=== PATIENT | female | born 1965 | race Caucasian/White ===

== ENCOUNTER 2023-12-03 19:13 | Emergency (ER) | payer MEDICARE, OTHER, SELFPAY ==
[2023-12-03 19:14] VITALS: BP 146/79; PULSE 95; RESP 18; TEMP 36.7; O2SAT 100
--- NOTE | 2023-12-03 19:48 | EDS_ITS ---
HPI <JOEL Martin - Last Filed: 12/03/23 21:15> History of Present Illness Chief Complaint: Wound Narrative Narrative: Patient is a 58-year-old female with history of severe morbid obesity, diabetes, hyperlipidemia who presents to the emergency department with concern about possible new wound. Patient currently sees the [place] wound [facility], she sees them on Thursday. Patient is currently has packing to 1 wound. The daughter noticed a small area today. They also are unable to get there nystatin powder. Patient [place] any fever chills or infectious symptoms. PFS <JOEL Martin - Last Filed: 12/03/23 21:15> [facility] Medical History (Updated 12/03/23 @ 21:14 by JOEL Martin) CPAP (continuous positive airway pressure) dependence Diabetes GERD (gastroesophageal reflux disease) Hypothyroidism Osteoporosis Sleep apnea Home Medications ascorbic acid (vitamin C) 500 mg tablet,extended release (C Complex) 500 mg PO DAILY 12/03/23 [History Last Taken Unknown] atorvastatin 20 mg tablet 20 mg PO DAILY 12/03/23 [History Last Taken Unknown] cholecalciferol (vitamin D3) 50 mcg (2,000 unit) capsule 50 mcg PO DAILY 12/03/23 [History Last Taken Unknown] ferrous sulfate 325 mg (65 mg iron) tablet (iron) 325 mg PO DAILY 12/03/23 [History Last Taken Unknown] levothyroxine 125 mcg capsule 125 mcg PO DAILY 12/03/23 [History Last Taken Unknown] metformin 750 mg tablet,extended release 24 hr 750 mg PO BID 12/03/23 [History Last Taken Unknown] metoprolol tartrate 50 mg tablet (Lopressor) 50 mg PO BID 12/03/23 [History Last Taken Unknown] nystatin 100,000 unit/gram topical powder 1 applic topical BID #15 grams 12/03/23 [Rx Last Taken Unknown] omeprazole 40 mg capsule,delayed release 40 mg PO DAILY 12/03/23 [History Last Taken Unknown] pioglitazone 45 mg tablet 45 mg PO DAILY 12/03/23 [History Last Taken Unknown] Allergy/AdvReac Type Severity Reaction Status Date / Time Iodinated Contrast Media Allergy Intermediate HIVES Verified 12/03/23 19:17 Surgical History (Updated 12/03/23 @ 19:30 by Bijal Lynn) History of 2 sections Social History Smoking Status: Never smoker ROS <JOEL Martin - Last Filed: 12/03/23 21:15> ROS ED ROS Narrative Constitutional: Negative for fever, chills, weight loss, weakness Eyes: Negative for vision loss, vision change, double vision ENT: Negative for any sore throat, ear pain, congestion Cardiovascular: Negative for any chest pain, tightness, palpitations Respiratory: Negative for any cough, sputum production, hemoptysis, dyspnea, dyspnea on exertion, orthopnea Gastrointestinal: Negative for any abdominal pain, nausea, vomiting, diarrhea, constipation, blood in stool, blood in vomit : Negative for any urinary frequency, dysuria, retention, blood in urine Muscle skeletal: Negative for any neck pain, back pain Neurological: Negative for any headache, syncope, dizziness Skin: Negative for any rashes, itching, abrasions, lacerations. Positive for wound to the lower abdomen Psychiatric: Negative for any depression, anxiety, stress, suicidal ideation, homicidal ideation Hematologic: Negative for any excessive bruising, easy bleeding EXAM <JOEL Martin - Last Filed: 12/03/23 21:15> Physical Exam Narrative Exam Narrative: Vital signs reviewed. HEET: Head normocephalic atraumatic, TMs clear bilaterally. Posterior pharynx is clear, moist mucous membranes. Nares clear bilaterally. Neck: Supple with no lymphadenopathy or tenderness. No signs of meningismus. Cardiac: Regular rate and rhythm no murmurs gallops or rubs, equal peripheral pulses bilaterally. Respiratory: Lungs clear to auscultation bilaterally. No chest tenderness. Abdomen: Soft, nontender, nondistended. No abdominal bruit or pulsatile masses. No hepatosplenomegaly Extremities: No peripheral edema, no signs of gross trauma or deformity. Active full range of motion of all extremities. Neuro: Cranial nerves II through XII intact, no focal neurological deficits. Skin: Clean dry and intact with no rash, purpura, petechiae, vesicles or pustules. Patient under the pannus does have 1 wound that is currently getting dressed, the other wound is small roughly 1 cm x 1 cm circular, there is minimal tracking. There is no surrounding cellulitis, no drainage. Patient has no surrounding cellulitis. The area looks generally well, do not see any yeast. Backs/flank: No CVA tenderness, no midline spinal tenderness, no deformity. Psych: Normal mood and affect. No SI, HI or acute psychosis. Const Vital Signs: 12/03/23 19:14 12/03/23 21:10 Temperature 98.0 F 97.9 F Temperature Source Temporal Oral Pulse Rate 95 78 Respiratory Rate 18 16 Blood Pressure 146/79 H 126/56 H Blood Pressure Mean 101 79 Pulse Ox 100 97 Oxygen Delivery Method Room Air Room Air Positive obese Nutritional Appearance: obese <Dr. Theodore Kowalski DO - Last Filed: 12/03/23 21:33> Physical Exam Const Vital Signs: 12/03/23 19:14 12/03/23 21:10 Temperature 98.0 F 97.9 F Temperature Source Temporal Oral Pulse Rate 95 78 Respiratory Rate 18 16 Blood Pressure 146/79 H 126/56 H Blood Pressure Mean 101 79 Pulse Ox 100 97 Oxygen Delivery Method Room Air Room Air MDM <JOEL Martin - Last Filed: 12/03/23 21:15> MDM Radiography Diagnostic Testing: Clinical Impression(s) from Imaging Studies Pelvis CT 12/03/23 20:35 IMPRESSION: No significant soft tissue abnormality. Electronically Signed: Singh Fernandez MD at 20:59 EDT Reading Location ID and State: [facility] / [place] Tel , Service support , Treatment and Re-Evaluation :: Differential diagnosis includes however is not limited to: Acute on chronic wound, MRSA, MSSA, cellulitis. Patient is in no obvious distress, patient's vital signs are stable, presenting to the emergency department with complaints of wound to the pannus area. At this time, we did order a CT scan to ensure there is no tracking. CT scan of the abdomen pelvis without contrast shows no significant soft tissue abnormality. At this time, patient be discharged home. She will continue to follow-up with mass and wound care. She be given nonadherent dressing pads. I will start the patient on her nystatin powder which she is supposed to be using and could not get filled. Patient instructed return for any worsening symptoms, stable for discharge <Dr. Theodore Kowalski DO - Last Filed: 12/03/23 21:33> MDM Radiography Diagnostic Testing: Clinical Impression(s) from Imaging Studies Pelvis CT 12/03/23 20:35 IMPRESSION: No significant soft tissue abnormality. Electronically Signed: Singh Fernandez MD at 20:59 EDT , Treatment and Re-Evaluation :: Differential diagnosis includes however is not limited to: Acute on chronic wound, MRSA, MSSA, cellulitis. Patient is in no obvious distress, patient's vital signs are stable, presenting to the emergency department with complaints of wound to the pannus area. At this time, we did order a CT scan to ensure there is no tracking. CT scan of the abdomen pelvis without contrast shows no significant soft tissue abnormality. At this time, patient be discharged home. She will continue to follow-up with [facility] and wound care. She be given nonadherent dressing pads. I will start the patient on her nystatin powder which she is supposed to be using and could not get filled. Patient instructed return for any worsening symptoms, stable for discharge I have personally performed a face to face assessment of the patient and have reviewed the STACY Note. I performed a substantive portion of the visit including all aspects of the following. My krishna findings include: History is 58-year-old female history of diabetes morbid obesity is a chronic wound to her lower abdomen underneath the pannus had a prior site.. Patient has a small open area with packing in place. She saw wound care on Thursday. Another hole is opened up just to the left lateral aspect of the and now the skin just to the lateral aspect of that started to become friable. They have been unable to get nystatin powder which they are instructed to use. Family was concerned they may be missing something and was concerned about the upcoming weekend. No reported fevers. Exam is morbidly obese female with a packed small half centimeter circular wound along her prior scar. There is a 4 mm diameter circular wound just to the left of this with some friable tissue lateral to that. There is no foul smell or drainage from the wounds. No significant erythema. Medical Decison Making CT head of the pelvis without IV contrast was obtained. I do not see any focal fluid collection needs to be drained. We are going to provide some nonstick Telfa pads to use over the wounds. At work and we will see if we get her some nystatin powder when she is going to follow-up with the wound center next week. Discharge Plan Triage Chief Complaint: Wound ED Midlevel Provider: Kael Salinas ED Provider: Theodore Kowalski Dx/Rx/DC Orders Clinical Impression: Open abdominal wall wound Prescriptions: New nystatin 100,000 unit/gram powder 1 applic topical BID Qty: 15 0RF No Action metformin 750 mg tablet extended release 24 hr 750 mg PO BID atorvastatin 20 mg tablet 20 mg PO DAILY metoprolol tartrate [Lopressor] 50 mg tablet 50 mg PO BID omeprazole 40 mg capsule,delayed release(DR/EC) 40 mg PO DAILY pioglitazone 45 mg tablet 45 mg PO DAILY levothyroxine 125 mcg capsule 125 mcg PO DAILY ferrous sulfate [iron] 325 mg (65 mg iron) tablet 325 mg PO DAILY ascorbic acid (vitamin C) [C Complex] 500 mg tablet extended release 500 mg PO DAILY cholecalciferol (vitamin D3) 50 mcg (2,000 unit) capsule 50 mcg PO DAILY Primary Care Provider: Pietro Fortune [employer] Referrals: NOT,DEFINED [Non-Staff] - Activity Restrictions/Additional Instructions: Using nonadherent pads. Use the nystatin powder twice a day. Follow-up on Thursday at your wound care center. Disposition Disposition: Home, Self Care
--- NOTE | 2023-12-03 20:35 | CT_ITS ---
INDICATION: ABDOMINAL WALL WOUND EXAMINATION: CT PELVIS BONE - CT Pelvis W/O Contrast Injection TECHNIQUE: Routine noncontrast bone CT protocol was performed of the pelvis. 2-D reformats were performed by the technologist. A radiation dose optimization technique was used for this scan. IV Contrast dosage and agent: None. COMPARISON: None. FINDINGS: SOFT TISSUES: No focal soft tissue fluid collections or gas formations. No focal skin thickening No radiopaque foreign body. BONES/JOINTS: No acute fractures. Degenerative changes of the bilateral hips. No sclerotic or destructive changes. CT/Pelvis without IV Contrast IMPRESSION: No significant soft tissue abnormality. Electronically Signed: Singh Fernandez MD at 20:59 EDT ,
[2023-12-03 21:10] VITALS: BP 126/56; PULSE 78; RESP 16; TEMP 36.6; O2SAT 97
[2023-12-03 22:10] VITALS: BP 126/74; PULSE 76; RESP 16; TEMP 36.4; O2SAT 96
== END 2023-12-03 22:11 | disposition home or self-care (01) ==
PROVIDERS: Emergency Provider Emergency Medicine; PCP Nurse Practitioner Family; Visit Provider Emergency Medicine
DX: S31.109A Unspecified open wound of abdominal wall, unspecified quadrant without penetration into peritoneal cavity, initial encounter (principal); E66.01 Morbid (severe) obesity due to excess calories; E11.9 Type 2 diabetes mellitus without complications; E78.5 Hyperlipidemia, unspecified; G47.30 Sleep apnea, unspecified; E03.9 Hypothyroidism, unspecified; K21.9 Gastro-esophageal reflux disease without esophagitis; Z79.899 Other long term (current) drug therapy; Z79.84 Long term (current) use of oral hypoglycemic drugs; X58.XXXA Exposure to other specified factors, initial encounter
CPT/HCPCS: 72192; 99282